=== PATIENT | female | born 1950 | race Caucasian/White ===

== ENCOUNTER 2016-08-18 22:13 | Emergency (ER) | payer MEDICARE, MEDICAID ==
[2016-08-18 22:36] VITALS: BMI 37.3
[2016-08-18 22:44] VITALS: BP 168/85; PULSE 73; RESP 16; TEMP 97.7; O2SAT 98
--- NOTE | 2016-08-18 22:54 | ED PDOC ---
Arrival/HPI - General Chief Complaint: Eye Problem Time Seen by Provider: 08/18/16 22:39 Historian: Patient - History of Present Illness Narrative History of Present Illness (Text): 08/18/16 22:51 Patient reports 5 day h/o rash to the forehead by the hairline and periorbital edema after going to the hair salon the day before, states that her director hair had applied a cream on her forehead then the next day the symptoms started, has been taking claritin with some improvement of the symptoms. Otherwise patient reports (-) throat swelling, (-) tongue / lip swelling, (-) dyspnea, (-) cough, (-) wheezing, (-) abdominal pain, (-) nausea (-) vomiting. The patient has no history of allergic reactions. PMD A Lona Past Medical History - Provider Review Nursing Documentation Reviewed: Yes - Infectious Disease Hx of Infectious Diseases: None - Tetanus Immunization Tetanus Immunization: Unknown - Cardiac Hx Cardiac Disorders: Yes Hx Hypertension: Yes - Pulmonary Hx Respiratory Disorders: No - Neurological Hx Neurological Disorder: No - HEENT Hx HEENT Disorder: No - Renal Hx Renal Disorder: No - Endocrine/Metabolic Hx Endocrine Disorders: No - Hematological/Oncological Hx Blood Disorders: Yes Hx Cancer: Yes (BREAST) - Integumentary Hx Dermatological Disorder: No - Musculoskeletal/Rheumatological Hx Musculoskeletal Disorders: No - Gastrointestinal Hx Gastrointestinal Disorders: No - Genitourinary/Gynecological Hx Genitourinary Disorders: No - Psychiatric Hx Psychophysiologic Disorder: No Hx Depression: No Hx Emotional Abuse: No Hx Physical Abuse: No Hx Substance Use: No - Past Surgical History Past Surgical History: No Previous - Surgical History Other/Comment: right breast - Suicidal Assessment Feels Threatened In Home Enviroment: No Family/Social History - Physician Review Nursing Documentation Reviewed: Yes Family/Social History: No Known Family HX Smoking Status: Never Smoked Hx Alcohol Use: No Hx Substance Use: No Hx Substance Use Treatment: No Allergies/Home Meds Allergies/Adverse Reactions: Allergies No Known Allergies Allergy (Verified 05/30/15 18:57) Home Medications: Home Meds Medication Instructions Recorded Confirmed Calcium Carb, Citrate/Vit D3 1 each PO DAILY 08/18/16 08/18/16 [Calcium + D3 ER Tablet] Cholecalciferol (Vitamin D3) 5,000 unit PO DAILY 08/18/16 08/18/16 [Vitamin D3] Clonidine HCl [Catapres] 0.2 mg PO BID 08/18/16 08/18/16 Diclofenac Sodium [Voltaren] 75 mg PO BID 08/18/16 08/18/16 Ergocalciferol [Drisdol 50,000 1 cap PO QWK 08/18/16 08/18/16 Intl Units Cap] Letrozole [Femara] 2.5 mg PO DAILY 08/18/16 08/18/16 Losartan Potassium 100 mg PO DAILY 08/18/16 08/18/16 Metoprolol Tartrate [Lopressor] 50 mg PO BID 08/18/16 08/18/16 Minoxidil 2.5 mg PO DAILY 08/18/16 08/18/16 Warfarin Sodium [Jantoven] 5 mg PO DAILY 08/18/16 08/18/16 Review of Systems - Review of Systems Constitutional: Normal. absent: Fatigue, Weight Change, Fevers Eyes: Normal. absent: Vision Changes, Photophobia ENT: Normal. absent: Hearing Changes Respiratory: Normal. absent: SOB, Cough, Sputum Cardiovascular: Normal. absent: Chest Pain, Palpitations, Edema Skin: Normal, Rash, Pruritis. absent: Skin Lesions Physical Exam - Physical Exam Narrative Physical Exam (Text): 08/18/16 22:54 GENERAL APPEARANCE: Patient is awake, alert, oriented x 3, in no acute distress. SKIN: (+) Erythematous rash noted to the forehead proximal to the hairline. Otherwise (-) excoriations, (-) drainage, (-) crusting of lesions is present. HENT: (+) mild - moderate b/l periorbital edema, (-) conjunctival injection, (- ) chemosis. Oropharynx: clear (-) tongue or lip swelling, (-) tonsillar exudates , (-) erythema. Airway: patent (-) stridor, (-) hoarseness. Mucous membranes moist. Nares: Patent (-) rhinorrhea. NECK: (-) lymphadenopathy, (-) tenderness. CARDIOVASCULAR: Normal rate and rhythm. (-) murmur, (-) gallop. CHEST: (-) rales, (-) wheezing, (-) dyspnea, (-) stridor. Breath sounds equal bilaterally. ABDOMEN: Soft. (-) tenderness, (-) distention, (-) HSM. NEURO: Mental status: Patient is alert, oriented, and with normal strength and tone. Vital Signs Temp Pulse Resp BP Pulse Ox 08/18/16 22:38 97.7 F 73 16 168/85 H 98 Medical Decision Making ED Course and Treatment: 08/18/16 22:55 65 yo F presents with a five-day history of rash to her forehead as well as periorbital edema after going to the hair salon. Patient medicated with prednisone by mouth. Advised to continue taking Claritin. Based on history and exam, plan will be for patient follow-up. Prescription provided. Patient states she fully agrees with and understands discharge instructions. States that she agrees with the plan and disposition. Verbalized and repeated discharge instructions and plan. I have given the patient opportunity to ask any additional questions. Follow up with primary care physician in 1-2 days without fail. Advised to take medication as prescribed. Return to the emergency room at any time for any new or worsening symptoms. - PA / HEDIS ANALYST / Resident Statement MD/DO has reviewed & agrees with the documentation as recorded. Disposition/Present on Arrival - Present on Arrival Any Indicators Present on Arrival: No History of DVT/PE: No History of Uncontrolled Diabetes: No Urinary Catheter: No History of Decub. Ulcer: No History Surgical Site Infection Following: None - Disposition Have Diagnosis and Disposition been Completed?: Yes Diagnosis: Contact dermatitis Disposition: HOME/ ROUTINE Disposition Time: 22:56 Patient Plan: Discharge Condition: STABLE Discharge Instructions (ExitCare): Contact Dermatitis (ED) Print Language: COL[place] Additional Instructions: Thank you for letting us take care of you today. You were treated for contact dermatitis. The emergency medical care you received today was directed at your acute symptoms. Continue taking Claritin, take prednisone as prescribed. It may take several days for your symptoms to resolve. Return to the Emergency Department if your symptoms worsen, do not improve, or if you have any other problems. Please contact your doctor in 2 days for re-evaluation and follow up. Bring any paperwork you were given at discharge with you along with any medications you are taking to your follow up visit. Our treatment cannot replace ongoing medical care by a primary care provider (PCP) outside of the emergency department. Thank you for allowing the [facility] [employer] team to be part of your care today. Prescriptions: Hydrocortisone Mellisa 0.2% Cr [Westcort] 1 ea TP BID #15 tube predniSONE [predniSONE Tab] 40 mg PO DAILY #6 tab
== END 2016-08-18 23:15 | disposition home or self-care (01) ==
LOC: ED 22:13
DX: L25.9 Unspecified contact dermatitis, unspecified cause (principal)

== ENCOUNTER 2017-01-21 12:45 | Emergency (ER) | payer OTHER, MEDICARE, MEDICAID ==
[2017-01-21 13:01] VITALS: RESP 18; TEMP 97.6; O2SAT 98; BMI 37.5
[2017-01-21] MEDS ORDERED: Oxycodone/Acetaminophen 5/325 mg Tab PO STA (13:21)
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
[2017-01-21 17:22] LABS: ALB/GLOB RATIO 1.6 (1.1-1.8); ALKALINE PHOSPHATASE 46 U/L (38-126); ALT/SGPT 42 U/L (7-56); AST/SGOT 34 U/L (14-36); BILIRUBIN,TOTAL 0.4 mg/dL (0.2-1.3); BLOOD UREA NITROGEN 22 mg/dL (7-21); CALCIUM 9.3 mg/dL (8.4-10.5); CARBON DIOXIDE 28 mmol/L (21-33); CHLORIDE 102 mmol/L (98-107); GFR AFRICAN-AMERICAN > 60; GLUCOSE,RANDOM 108 mg/dL (70-110); LIPASE 133 U/L (23-300); POTASSIUM 4.3 mmol/L (3.6-5.0); SODIUM 139 mmol/L (132-148)
[2017-01-21 17:24] LABS: BASO # 0.05 K/mm3 (0.0-2.0); BASO % 1.3 % (0.0-3.0); EOS # 0.1 (0.0-0.7); GRAN # 1.39 (1.4-6.5); GRAN % 35.5 % (50.0-68.0); HEMATOCRIT 38.7 % (36.0-48.0); LYMPH # 2.1 (1.2-3.4); LYMPH % 52.8 % (22.0-35.0); MEAN CELL VOLUME 89.4 fl (80.0-105.0); MEAN CORPUSCULAR HEMOGLOBIN 30.5 pg (25.0-35.0); MEAN CORPUSCULAR HGB CONC 34.1 g/dl (31.0-37.0); MEAN PLATELET VOLUME 9.9 fl (7.0-11.0); MONO # 0.3 (0.1-0.6); MONO % 8.4 % (1.0-6.0); WHITE BLOOD COUNT 3.9 10^3/ul (4.5-11.0)
[2017-01-21 17:32] LABS: INR 1.95 (0.93-1.08); PARTIAL THROMBOPLASTIN TIME 31.9 Seconds (23.7-30.8)
[2017-01-21 17:36] LABS: TROPONIN I < 0.01 ng/mL
[2017-01-21 18:01] VITALS: BP 158/71; PULSE 61
== END 2017-01-21 18:10 | disposition home or self-care (01) ==
LOC: ED 12:45
DX: H05.232 Hemorrhage of left orbit (principal); T14.8XXA Other injury of unspecified body region, initial encounter; V49.9XXA Car occupant (driver) (passenger) injured in unspecified traffic accident, initial encounter

== ENCOUNTER 2018-04-16 08:46 | Outpatient (CLI) | payer MEDICARE, MEDICAID | END 2018-04-16 08:47 | disposition home or self-care (01) | LOC: RAD 08:46 | DX: C79.51 Secondary malignant neoplasm of bone (principal); C50.911 Malignant neoplasm of unspecified site of right female breast; Z17.0 Estrogen receptor positive status [ER+] ==